=== PATIENT | male | born 1980 | race Caucasian/White ===

== ENCOUNTER 2018-02-04 15:42 | Emergency (ER) | payer OTHER ==
[~2018-02-04] VITALS: Ht 167.6 cm; Wt 80.0 kg
[2018-02-04 15:55] VITALS: Ht 167.6 cm; Wt 80.0 kg
[2018-02-04 16:28] LABS: BASOPHIL % 0.4 % (0-2); PLATELET COUNT 252 x10^3mcL (130-400); RED CELL DISTRIBUTION WIDTH 13.5 % (11.5-14.5)
[2018-02-04 16:43] LABS: CALCIUM 9.5 mg/dL (8.5-10.1); CARBON DIOXIDE 31.3 mmol/L (21-32); CHLORIDE SERUM 101 mmol/L (98-107); GFR1 > 60 mL/min; GLUCOSE SERUM 99 mg/dL (74-106); POTASSIUM SERUM 4.2 mmol/L (3.5-5.1); SODIUM SERUM 139 mmol/L (136-145)
[2018-02-04 16:48] LABS: ALBUMIN 4.3 g/dL (3.4-5.0); ALKALINE PHOSPHATASE 62 U/L (46-116); ALT/SGPT 36 U/L (16-63); AST/SGOT 21 U/L (15-37); BILIRUBIN TOTAL 0.58 mg/dL (0.20-1.00)
[2018-02-04 16:53] LABS: TOTAL PROTEIN, SERUM 8.5 g/dL (6.4-8.2)
[2018-02-04 18:04] VITALS: BP 123/64
== END 2018-02-04 18:04 | disposition other institution (70) ==
LOC: ED 15:42
PROVIDERS: Emergency Medicine
DX: R07.89 Other chest pain (principal)
CPT/HCPCS: 36415

== ENCOUNTER 2018-02-04 15:42 | Emergency (ER) | payer OTHER | END 2018-02-04 18:05 | disposition other institution (70) | LOC: ED 15:42 | DX: Z02.89 Encounter for other administrative examinations (principal) ==